=== PATIENT | female | born 1965 | race Caucasian/White ===

== ENCOUNTER 2016-10-17 11:45 | Outpatient (CLI) | payer BC ==
[2016-10-17 12:19] LABS: Bilirubin Negative (Negative); Blood, Urine Negative (Negative); Clarity Clear (Clear); Glucose, Urine (Dipstick) Negative (Negative); Leukocyte Negative (Negative); Nitrite Negative (Negative); Protein, Urine (Dipstick) Negative (Neg-Trace); Urobilinogen 0.2 mg/dL (0.2-1.0)
[2016-10-17 12:23] LABS: #Basophils 0.1 thou/uL (0.0-0.2); #Eosinphils 0.1 thou/uL (0.0-0.7); #Lymphocytes 1.6 thou/uL (1.20-3.40); #Monocytes 0.4 thou/uL (0.11-0.59); #Neutrophils 4.4 thou/uL (1.40-6.50); %Eosinophils 1.5 % (0.0-10.0); %Lymphocytes 23.7 % (21.0-51.0); %Monocytes 6.3 % (0.0-10.0); %Neutrophils 67.4 % (42.0-75.0); Mean Corpuscular HGB CONC 32.6 g/dL (32.0-36.0); Mean Corpuscular Hemoglobin 29.2 pg (27.0-31.0); Mean Corpuscular Volume 89.8 fl (81.0-99.0); Mean Platelet Volume 6.6 fL (7.4-10.4); Platelet Count 248 thou/uL (130-400); RBC Distribution Width 12.1 % (11.5-14.5); White Blood Cell (WBC) Count 6.5 thou/uL (4.8-10.8)
[2016-10-17 12:30] LABS: ALT (SGPT) 20 U/L (8-55); AST (SGOT) 18 U/L (5-34); Albumin 3.9 g/dL (3.5-5.0); Alkaline Phosphatase 75 U/L (40-150); Anion Gap 13 mmol/L (10-20); BUN (Urea Nitrogen) 16 mg/dL (7.0-18.7); Calc. Creatinine Clearance 0 mL/min (70-130); Calcium 9.3 mg/dL (7.8-10.44); Carbon Dioxide 24 mmol/L (22-29); Chloride 105 mmol/L (98-107); Cholesterol 195 mg/dl (< 200 Desired); Estimated GFR-MDRD 77; Globulin 2.7 g/dL (2.4-3.5); Glucose 100 mg/dL (70-105); HDL Cholesterol 39 mg/dL (>60 Neg Risk); LDL Cholesterol, Calculated 133 mg/dL; Potassium 4.5 mmol/L (3.5-5.1); Protein, Total 6.6 g/dL (6.0-8.3); Sodium 137 mmol/L (136-145); Triglycerides 115 mg/dL (Less than 150)
== END 2016-10-17 11:46 | disposition home or self-care (01) ==
LOC: NAVSJIPCSP 11:45
PROVIDERS: ATTEND Internal Medicine
DX: E78.5 Hyperlipidemia, unspecified (principal); I11.9 Hypertensive heart disease without heart failure; N92.1 Excessive and frequent menstruation with irregular cycle
CPT/HCPCS: 36415; 80053; 80061; 81003; 84443; 85025

== ENCOUNTER 2016-10-17 12:06 | Outpatient (CLI) | payer BC ==
--- NOTE | 2016-10-19 07:38 | RAD ---
THREE VIEWS OF THE LUMBAR SPINE HISTORY: Low back pain for many months. COMPARISON: None. FINDINGS: There are five lumbar type vertebral bodies. There is pseudoarthrosis of the right L5 ala over the sacrum. Vertebral body height is maintained. There is no fracture. There is 4 mm of anterolisthes is of L4 upon L5. No associated spondylosis. IMPRESSION: 1. Grade 1 anterolisthesis of L4 upon L5. 2. 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 POS: MARIA DOLORES
== END 2016-10-17 12:07 | disposition home or self-care (01) ==
LOC: NAV RAD 12:06
PROVIDERS: ATTEND Internal Medicine
DX: M54.5 Low back pain (principal); S32.059A Unspecified fracture of fifth lumbar vertebra, initial encounter for closed fracture
CPT/HCPCS: 72100

== ENCOUNTER 2020-09-15 16:02 | Outpatient (CLI) | payer BC | END 2020-09-15 16:03 | disposition home or self-care (01) | LOC: NAV RAD 16:02 | PROVIDERS: ATTEND Family Medicine | DX: R07.81 Pleurodynia (principal); M94.0 Chondrocostal junction syndrome [Tietze] ==

== ENCOUNTER 2022-07-02 23:19 | Emergency (ER) | payer BC ==
[2022-07-03] MEDS ORDERED: Clindamycin 150 MG CAP ONE (00:18)
== END 2022-07-03 00:24 | disposition home or self-care (01) ==
LOC: NAV ERS 23:19
DX: J03.90 Acute tonsillitis, unspecified (principal); E66.9 Obesity, unspecified
CPT/HCPCS: 99282